=== PATIENT | male | born 1990 | race Native Hawaiian/Other Pacific Islander ===

== ENCOUNTER 2017-08-02 19:14 | Emergency (ER) | payer MEDICAID | END 2017-08-02 21:15 | disposition left against medical advice (07) | LOC: ED 19:14 | DX: Z53.21 Procedure and treatment not carried out due to patient leaving prior to being seen by health care provider (principal) ==

== ENCOUNTER 2017-12-03 05:32 | Emergency (ER) | payer MEDICAID ==
[~2017-12-03] VITALS: Ht 175.3 cm; Wt 135.2 kg
[2017-12-03 05:38] VITALS: Ht 175.3 cm; Wt 135.2 kg
[2017-12-03 06:31] VITALS: BP 122/94
== END 2017-12-03 06:31 | disposition home or self-care (01) ==
LOC: ED 05:32
DX: H66.92 Otitis media, unspecified, left ear (principal); K11.21 Acute sialoadenitis